=== PATIENT | female | born 1955 | race Caucasian/White ===

== ENCOUNTER 2016-09-29 19:57 | Emergency (ER) | payer OTHER ==
[~2016-09-29] VITALS: Ht 160 cm; Wt 81.8 kg
[~2016-09-29 19:57] MED LIST: AZU500 PO; CHOL100045 PO; DIAZ5TAB PO; LEFL20TA18 PO; LUTE1CAP4 PO; MAGN400C PO; MULT-1018 PO; POVI15DR AFFECT_EYE; ROB500 PO; VIT1TABL83 PO
[2016-09-29 20:06] VITALS: BP 176/98; PULSE 86; RESP 16; O2SAT 97
--- NOTE | 2016-09-29 21:02 | ED.REPORT ---
HPI-General Illness Date of Service Sep 29, 2016 ED Provider: Tayo Durant Juan Miguel DO A 61 year old female with a history of hypertension. hyperlipidemia, anxiety, PTSD and medicated RA presents to the ED complaining of left thumb pain. The pt was slicing onions several hours ago when she cut her finger with the knife. The laceration continued to bleed so the pt decided to seek medical care. The pt denies use of blood thinners. Nursing Notes Stated Complaint: LEFT THUMB LACERATION Chief Complaint: Laceration Nursing Notes Reviewed: Yes Allergies: Coded Allergies: hydroxychloroquine (Verified Allergy, Severe, RASH, 09/29/16) Opioids - Morphine Analogues (Verified Adverse Reaction, Severe, N&V, 09/29) aspartame (Verified Adverse Reaction, Severe, N&V, 09/29/16) codeine (Verified Adverse Reaction, Severe, hyper/psychotic state, 09/29/16 ) erythromycin ethylsuccinate (Verified Adverse Reaction, Severe, GI upset, 09/29/16) Uncoded Allergies: BENEDRYL (Adverse Reaction, Severe, EXTREME SEDATION, 04/07/16) doxacycline (Adverse Reaction, Severe, ill from any sun exposure, 11/21/07) Scheduled Cholecalciferol (Vitamin D3) (Vitamin D) 1,000 Unit Capsule 1,000 UNIT PO DAILY Diazepam (Valium) 5 Mg Tablet 5 MG PO PRN 2H PRIOR TO PROCEDURES Leflunomide (Leflunomide) 20 Mg Tablet 20 MG PO DAILY Magnesium Oxide (Magnesium) 400 Mg Capsule 400 MG PO DAILY Multivitamin (Multi Vitamin Daily) 1 Each Tablet 1 EACH PO DAILY Sulfasalazine (Sulfasalazine) 500 Mg Tablet 1,000 MG PO BID Vit B Comp/C/FA/Iron/Vit E (Vitamin B Complex Tablet) 1 Each Tablet 1 EACH PO DAILY Scheduled PRN Lutein/Zeaxanthin (Lutein-Zeaxanthin 25-5 mg Sfgl) 1 Each Capsule 1 EACH PO DIRECTED PRN PRN HEALTH Methocarbamol (Methocarbamol) 500 Mg Tablet 500-1,000 MG PO QID PRN PRN PRN Povidone (Soothe Hydration) 15 Ml Drops 15 ML AFFECT_EYE DIRECTED PRN PRN DRY EYES General Time Seen by MD: 21:00 Chief Complaint Laceration Hx Obtained From: Patient Arrived By: Walk-in Sudden in Onset?: Yes Onset Occurred: 5 - 8 hours ago Symptom Duration: Since onset Recent Healthcare: No recent hospitalization, Recent doctor visit Similar Sx Previous: No Past Medical History Past Medical History RA on medication UTI ulcer anxiety PTSD Reports: Hyperlipidemia, Hypertension Past Surgical History left index finger tendon repair Reports: , Cholecystectomy Smoking History Unknown if Ever Smoker Social History Drug Use: THC Other Social History: Good social support Ambulatory Status Independent Review of Systems laceration Full Review of Systems Respiratory: Denies: Non-productive cough, Shortness of breath Cardiovascular: Denies: Chest pain GI: Denies: Abdominal pain, Vomiting Musculoskeletal: Reports: Extremity pain, Denies: Neck pain Skin: Denies Rash Complete sys rev & neg: except as marked. Physical Exam Vital Signs Vital Signs Date Time Temp Pulse Resp B/P Pulse Ox O2 Delivery O2 Flow Rate FiO2 09/29/16 20:06 36.2 86 16 176/98 97 Room Air Initial VS: Reviewed General/Constitutional: Awake, Alert Head / Eyes: Atraumatic, Normocephalic, PERRL, EOMI ENT: Atraumatic, Airway patent, Mucous membranes moist Neck: Atraumatic, Supple, Full range of motion Respiratory / Chest: Atraumatic, Breath sounds NL, Breath sounds = bilat, No respiratory distress Cardiovascular: Heart rate NL, Regular rhythm, Heart sounds NL Abdomen: Atraumatic, Soft, Non-tender Back: Atraumatic, Full range of motion Upper Extremities Upper Extremity / MS: Atraumatic, Full range of motion Wrist / Hand: Full range of motion, Neurologic intact, Vascular intact 1 cm laceration of left thumb Lower Extremity / Pelvis / MS: Atraumatic, Full range of motion Skin: Color NL, No rash, Warm, Dry Neurologic: Oriented X3, Speech NL, No motor deficits, No sensory deficits Psychiatric: Affect NL, Mood NL Procedures Laceration Management Time: 21:56 Procedure Performed by: ED physician Consent / Setup / Site Prep: Informed consent provided, Consent from patient , Time-out performed, Hand hygiene observed, Stand sterile technique Location of Wound: left thumb Local Anesthesia: Lidocaine 1% (4 mL) Digital Block: Yes Digit Involved: Thumb left Wound Preparation: Hibiclens - Chlorhexidine Debridement: None Irrigation: Copious Foreign Body Explore / Removal: Explored for foreign body Repair Skin: ___ O (4) # Sutures - Skin: 3 Suture Technique: Simple (interrupted) Post-Procedure / Complications: Antibiotic oint applied, Dressing applied, No complications, Condition improved, Tolerated procedure well, Patient stable Re-Eval/Medical Decision Source of Hx: Old records Time of Eval: 21:55 Patient Status: Condition improved Re-Evaluation/Progress Note: Pt rechecked and laceration management is performed. The pt tolerated the procedure well and there were no complications. The diagnosis and plan for discharge are discussed. The pt understands and agrees with the plan. All questions are addressed at this time. Counseled Regarding: Diagnosis, Lab results, Need for follow-up, When/why to return to ED Discharge & Departure Primary Impression: Laceration Disposition: Home Discharge Condition All VS Reviewed: Yes Condition: Stable Patient Instructions: Laceration (ED) Additional Instructions: Keep the wound clean, dry, and covered in antibiotic ointment. Have the stitches removed in 7 to 10 days. You can have this done either with your primary care physician or in the emergency department. Arrange a follow up appointment with your primary care physician for further evaluation. Return to the emergency department if you develop any new or worsening symptoms including redness, swelling, discharge or worsening pain. Referrals: Rabia Tabares MD (PCP) Scribe Attestation Portions of this note were transcribed by Trang Gordon. I, Dr. Durant personally performed the history, physical exam and medical decision-making; I reviewed and confirmed the accuracy of the information in the transcribed note. Signed by: Kim Mcdonald, 09/29/2016 and 2203. copies to: Rabia Tabares MD, Timothy Juan Miguel [place] Sep 29, 2016 21:02 TRANG GORDON Sep 29, 2016 21:10
[2016-09-29 22:33] VITALS: BP 152/86; PULSE 80; RESP 16; O2SAT 98
== END 2016-09-29 22:34 | disposition home or self-care (01) ==
LOC: SED 19:57
DX: S61.012A Laceration without foreign body of left thumb without damage to nail, initial encounter (principal); W26.0XXA Contact with knife, initial encounter; Y93.G9 Activity, other involving cooking and grilling; Y92.89 Other specified places as the place of occurrence of the external cause; Y99.8 Other external cause status; I10 Essential (primary) hypertension; M06.9 Rheumatoid arthritis, unspecified; F41.9 Anxiety disorder, unspecified; E78.5 Hyperlipidemia, unspecified; Z98.890 Other specified postprocedural states; Z88.1 Allergy status to other antibiotic agents; Z88.5 Allergy status to narcotic agent; Z88.8 Allergy status to other drugs, medicaments and biological substances